=== PATIENT | female | born 1950 | race Caucasian/White ===

== ENCOUNTER → 2017-09-25 | Outpatient (CLI) | payer MEDICARE, OTHER ==
[~2017-09-25] MED LIST: ACTONEL30 MG PO; ALEVE220 MG PO; AMBIEN10 MG PO; APRISO0.375 GM PO; ASPIR 8181 M1; BENADRYL25 MG PO; BENTYL20 MG PO; CALCIUM 600 +1 EAC4 PO; CLARITIN10 M1 PO; CLARITIN10 M3 PO; CLONAZEPAM1 MG PO; ELAVIL10 MG PO; ELAVIL100 MG PO; ELMIRON100 MG PO; ENDOCET 5-3251 EACH PO; EYE VITAMIN-MI1 EACH PO; FLOVENT 11120 INHALA IH; FLUTICASONE PRO16 GM BOTH NARES; HUMIRA40 MG/0.1 SC; LEVAQUIN500 MG PO; LEVOFLOXACIN500 MG PO; LIPITOR20 MG PO; LIPITOR80 MG; LIPITOR80 MG PO; METRONIDAZOLE500 MG PO; NEXIUM20 MG PO; PERCOCET 5/31 TABLET PO; PREDNISONE5 MG PO; PROAIR HFA8.5 GM IH; PROMETHAZINE HC25 M1 PO; PROTONIX40 MG PO; PROVENTIL2.5 MG/3 M IH; PROZAC20 M1 PO; PROZAC20 MG PO; RANITIDINE HCL300 MG PO; RECLAST5 MG/100 M IV; SANCTURA XR60 MG PO; SYMBICORT60 INHALA1 IH; SYMBICORT60 INHALAT IH; URELLE,DARPA1 TABLET PO; bentyl; ranitidine
== END | disposition home or self-care (01) ==
LOC: CDC 10:21
DX: Z01.810 Encounter for preprocedural cardiovascular examination (principal); M47.26 Other spondylosis with radiculopathy, lumbar region; M48.062 Spinal stenosis, lumbar region with neurogenic claudication
CPT/HCPCS: 93000